=== PATIENT | female | born 1965 | race Caucasian/White ===

== ENCOUNTER 2020-04-17 21:03 | Emergency (ER) | payer OTHER ==
[~2020-04-17] VITALS: Ht 167.6 cm; Wt 86.2 kg
[2020-04-17 21:25] VITALS: BP 140/88
--- NOTE | 2020-04-17 21:27 | NUR ---
To ED bed 04
--- NOTE | 2020-04-17 22:10 | NUR ---
MD FARAH AT BEDSIDE TO [facility]
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
--- NOTE | 2020-04-17 22:11 | NUR ---
dermabond was placed on pts left ring finger. pts [facility] wnl.
[2020-04-17 22:34] VITALS: BP 140/88
--- NOTE | 2020-04-17 22:35 | NUR ---
Patient discharged with v/s stable. Written and verbal after care instructions given and explained. Patient verbalized understanding. Ambulatory with steady gait. All questions addressed prior to discharge. Advised to follow up with PMD.
== END 2020-04-17 22:35 | disposition home or self-care (01) ==
LOC: MED 21:03
DX: S61.215A Laceration without foreign body of left ring finger without damage to nail, initial encounter (principal); X58.XXXA Exposure to other specified factors, initial encounter; Y93.89 Activity, other specified; Y92.89 Other specified places as the place of occurrence of the external cause; Y99.8 Other external cause status
CPT/HCPCS: 12001; 90471; 90715; 99283

== ENCOUNTER 2022-12-02 07:21 | Emergency (ER) | payer OTHER ==
[~2022-12-02] VITALS: Ht 177.8 cm; Wt 90.7 kg
--- NOTE | 2022-12-02 07:30 | NUR ---
BIBA BLS TO ER BED 12
[2022-12-02 07:31] VITALS: BP 160/95
[2022-12-02] MEDS ORDERED: MORPHINE SULFATE 10 MG/ML VIAL IVP ONE (07:35)
[2022-12-02] MEDS ORDERED: KETOROLAC 30 MG/ML VIAL IVP ONE (08:55)
[2022-12-02] MEDS ORDERED: ACETAMINOPHEN EXTRA STRENGTH 500 MG TAB PO ONE (08:55)
[2022-12-02] MEDS ORDERED: ACET-8905 PO (10:21)
[2022-12-02] MEDS ORDERED: IBUP-2213 PO (10:21)
--- NOTE | 2022-12-02 10:22 | NUR ---
RIGHT ARM/SHOULDER IMMOBILIZER FITTED TO PT. WITH NO DIFF. PT. A/OX4. NO ACUTE DISTRESS
[2022-12-02 10:40] VITALS: BP 125/57
--- NOTE | 2022-12-02 10:40 | NUR ---
Patient discharged with v/s stable. Written and verbal after care instructions given and explained. Patient alert, oriented and verbalized understanding of instructions. Ambulatory with steady gait. All questions addressed prior to discharge. ID band removed. Patient advised to follow up with PMD. Rx of NORCO, IBUPROFEN given. Patient educated on indication of medication including possible reaction and side effects. Opportunity to ask questions provided and answered.IV D/C'D.
== END 2022-12-02 10:40 | disposition home or self-care (01) ==
LOC: MED 07:21
DX: S42.201A Unspecified fracture of upper end of right humerus, initial encounter for closed fracture (principal); S42.291A Other displaced fracture of upper end of right humerus, initial encounter for closed fracture; S80.211A Abrasion, right knee, initial encounter; Z79.1 Long term (current) use of non-steroidal anti-inflammatories (NSAID); Z79.891 Long term (current) use of opiate analgesic; F41.9 Anxiety disorder, unspecified; W01.0XXA Fall on same level from slipping, tripping and stumbling without subsequent striking against object, initial encounter; Y92.89 Other specified places as the place of occurrence of the external cause; Y93.89 Activity, other specified; Y99.8 Other external cause status
CPT/HCPCS: 29240; 73030; 73060; 96374; 96375; 99284; J1885; J2270

== ENCOUNTER 2022-12-03 17:12 | Emergency (ER) | payer OTHER ==
[~2022-12-03] VITALS: Ht 177.8 cm; Wt 90.7 kg
[~2022-12-03 17:12] MED LIST: ACET-8905 PO; IBUP-2213 PO
[2022-12-03 17:16] VITALS: BP 163/72
--- NOTE | 2022-12-03 17:24 | NUR ---
pt ambulatory to [facility] made aware of pt symptoms.
--- NOTE | 2022-12-03 19:15 | NUR ---
Dr. Brandt explained results and treatment plans.
[2022-12-03 19:45] VITALS: BP 155/72
== END 2022-12-03 19:45 | disposition home or self-care (01) ==
LOC: MED 17:12
DX: S40.021A Contusion of right upper arm, initial encounter (principal); Z79.899 Other long term (current) drug therapy; X58.XXXA Exposure to other specified factors, initial encounter; Y93.89 Activity, other specified; Y92.89 Other specified places as the place of occurrence of the external cause; Y99.8 Other external cause status
CPT/HCPCS: 99281